=== PATIENT | female | born 1960 | race Caucasian/White ===

== ENCOUNTER 2017-07-16 13:35 | Emergency (ER) | payer OTHER ==
[~2017-07-16] VITALS: Ht 167.6 cm; Wt 61.2 kg
[2017-07-16 16:37] VITALS: BP 119/68
== END 2017-07-16 16:46 | disposition home or self-care (01) ==
LOC: ER 13:36
DX: R55 Syncope and collapse (principal); M25.552 Pain in left hip; I10 Essential (primary) hypertension; M19.90 Unspecified osteoarthritis, unspecified site
CPT/HCPCS: 73502; A4606; Z7610